=== PATIENT | male | born 1935 | race Caucasian/White ===

== ENCOUNTER 2017-03-24 08:31 | Emergency (ER) | payer OTHER, BC ==
[~2017-03-24] VITALS: Ht 175.3 cm; Wt 61.2 kg
[~2017-03-24 08:31] MED LIST: ADVAIR HFA120 INHALA IH; ATORVASTATIN CA10 MG PO; ATORVASTATIN CA20 MG PO; CENTRUM SILVER1 EAC3 PO; COMBIVENT RESPIM4 GM IH; FUROSEMIDE20 MG PO; IRON325 M1 PO; LISINOPRIL2.5 MG PO; LO-DOSE ASPIRIN81 M1 PO; LOPRESSOR25 MG PO; METOPROLOL TART25 MG PO; NICOTINE PATCH1 EAC1 TD; PANTOPRAZOLE SO40 MG PO; PREDNISONE10 MG PO; SPIRIVA RESPIMAT4 GM IH; SPIRIVA1 INHALATI IH
[2017-03-24] MEDS ORDERED: FLEXERIL5 MG PO (10:53)
[2017-03-24] MEDS ORDERED: LIDODERM 5% P1 PATCH TD (10:53)
[2017-03-24 11:00] VITALS: BP 131/66
== END 2017-03-24 11:01 | disposition home or self-care (01) ==
LOC: EME 08:31
DX: S22.41XA Multiple fractures of ribs, right side, initial encounter for closed fracture (principal); S41.111A Laceration without foreign body of right upper arm, initial encounter; W01.198A Fall on same level from slipping, tripping and stumbling with subsequent striking against other object, initial encounter; Z87.891 Personal history of nicotine dependence
CPT/HCPCS: 71250

== ENCOUNTER 2017-06-06 03:44 | Inpatient (IN) | payer OTHER, BC ==
[~2017-06-06] VITALS: Ht 175.3 cm; Wt 59.0 kg
[2017-06-06] VITALS (8 sets, daily range): BP systolic 100–124; BP diastolic 55–74
[~2017-06-06 03:44] MED LIST changes: +FLEXERIL5 MG PO; +LIDODERM 5% P1 PATCH TD
[2017-06-06 04:23] LABS: HEMATOCRIT 23.7 % (38.0-50.0); MCH 29.8 PG (29.0-34.0); MCHC 31.6 G/DL (30.0-36.0); MEAN PLAT.VOLUME 9.4 uM^3 (9.0-12.4); PLATELET COUNT 226 K/uL (156-360); RBC DIS.WIDTH-CV 17.3 % (11.8-14.6); RED BLOOD COUNT 2.52 M/uL (4.00-5.50); WHITE BLOOD COUNT 11.3 K/uL (4.1-10.2)
[2017-06-06 04:33] LABS: CHLORIDE 104 mEq/L (99-109); INTER. NORMALIZED RATIO 1.2; POTASSIUM 4.5 mEq/L (3.7-5.4); PTT 27.1 (25-32); SODIUM 134 mEq/L (136-147)
[2017-06-06 04:34] LABS: GLUCOSE 121 mg/dL (70-99)
[2017-06-06 04:36] LABS: ANION GAP 12 MEQ/L (2-14)
[2017-06-06 04:38] LABS: GFR ESTIMATE (CALCULATED) > 59 mL/min/
[2017-06-06 04:39] LABS: UREA NITROGEN (BUN) 31 mg/dL (9-23)
[2017-06-06 04:56] LABS: TROP-I INTERPRETATION POSITIVE; TROPONIN-I 1.05 ng/mL (0.0-0.30)
[2017-06-06] MEDS ORDERED: SPIRONOLACTONE25 MG PO (08:43)
[2017-06-06] MEDS ORDERED: CLOPIDOGREL75 MG PO (08:43)
[2017-06-06] MEDS ORDERED: TOPROL XL25 MG PO (08:43)
[2017-06-06] MEDS ORDERED: FUROSEMIDE20 MG PO (08:44)
[2017-06-06] MEDS ORDERED: ATORVASTATIN CA20 MG PO (08:44)
[2017-06-06] MEDS ORDERED: SYMAX DUOTAB0.375 MG PO (08:45)
[2017-06-06] MEDS ORDERED: SPIRIVA RESPIMAT4 GM IH (08:51)
[2017-06-06] MEDS ORDERED: HYOSCYAMINE0.375 M4 PO (08:52)
[2017-06-06] MEDS ORDERED: LEVBID0.375 MG PO (08:53)
[2017-06-06 10:04] LABS: TROP-I INTERPRETATION POSITIVE
[2017-06-06 16:45] LABS: TROP-I INTERPRETATION POSITIVE; TROPONIN-I 0.97 ng/mL (0.0-0.30)
[2017-06-07 03:00] VITALS: BP 111/54
[2017-06-07 05:49] LABS: EOSINOPHIL (%) 0 % (0-5); HEMATOCRIT 27.1 % (38.0-50.0); IMMATURE GRANULOCYTE (%) 1.3 % (0.0-0.7); IMMATURE GRANULOCYTE COUNT 0.1 K/uL; INSTRUMENT ABS NEUTROPHIL CT 7.6 K/uL; LYMPHOCYTE COUNT 0.3 K/uL (1.0-2.8); MCH 31.4 PG (29.0-34.0); MCHC 33.2 G/DL (30.0-36.0); MCV 94.4 FL (86-99); MEAN PLAT.VOLUME 9.5 uM^3 (9.0-12.4); MONOCYTE (%) 3.4 % (3-12); MONOCYTE COUNT 0.3 K/uL (0-0.8); NEUTROPHIL (%) 91.6 % (45-76); NEUTROPHIL COUNT 7.6 K/uL (1.8-6.4); PLATELET COUNT 206 K/uL (156-360); RBC DIS.WIDTH-CV 17.6 % (11.8-14.6); RBC DIS.WIDTH-SD 56.5 % (39-53); RED BLOOD COUNT 2.87 M/uL (4.00-5.50); WHITE BLOOD COUNT 8.3 K/uL (4.1-10.2)
[2017-06-07 06:12] LABS: ANION GAP 13 MEQ/L (2-14); CHLORIDE 105 MEQ/L (99-109); GFR ESTIMATE (CALCULATED) 56 mL/min/; GLUCOSE 151 mg/dL (70-99); MAGNESIUM 2.3 mg/dl (1.3-2.7); POTASSIUM 4.7 MEQ/L (3.7-5.4); SAMPLE HEMOLYSIS CHECK 0; SAMPLE ICTERIC CHECK 0; SAMPLE LIPEMIA CHECK 0; SODIUM 133 MEQ/L (136-147); UREA NITROGEN (BUN) 36 mg/dL (9-23)
[2017-06-07 08:27] VITALS: BP 123/59
[2017-06-07 11:12] VITALS: BP 112/57
[2017-06-07 11:23] LABS: TROP-I INTERPRETATION POSITIVE; TROPONIN-I 0.66 ng/mL (0.0-0.30)
[2017-06-07 17:52] VITALS: BP 112/58
[2017-06-07 20:58] VITALS: BP 110/63
[2017-06-07 23:56] VITALS: BP 88/50
[2017-06-08 04:38] VITALS: BP 102/58
[2017-06-08 05:48] LABS: EOSINOPHIL (%) 0 % (0-5); HEMATOCRIT 25.9 % (38.0-50.0); IMMATURE GRANULOCYTE (%) 1.5 % (0.0-0.7); IMMATURE GRANULOCYTE COUNT 0.2 K/uL; INSTRUMENT ABS NEUTROPHIL CT 12.6 K/uL; LYMPHOCYTE COUNT 0.3 K/uL (1.0-2.8); MCH 31.2 PG (29.0-34.0); MCHC 33.2 G/DL (30.0-36.0); MCV 93.8 FL (86-99); MEAN PLAT.VOLUME 9.8 uM^3 (9.0-12.4); MONOCYTE (%) 3.8 % (3-12); MONOCYTE COUNT 0.5 K/uL (0-0.8); NEUTROPHIL (%) 92.5 % (45-76); NEUTROPHIL COUNT 12.6 K/uL (1.8-6.4); PLATELET COUNT 214 K/uL (156-360); RBC DIS.WIDTH-CV 17.8 % (11.8-14.6); RBC DIS.WIDTH-SD 56.8 % (39-53); RED BLOOD COUNT 2.76 M/uL (4.00-5.50); WHITE BLOOD COUNT 13.7 K/uL (4.1-10.2)
[2017-06-08 06:26] LABS: ANION GAP 10 MEQ/L (2-14); CHLORIDE 105 MEQ/L (99-109); GFR ESTIMATE (CALCULATED) > 59 mL/min/; POTASSIUM 4.5 MEQ/L (3.7-5.4); SAMPLE HEMOLYSIS CHECK 0; SAMPLE ICTERIC CHECK 0; SAMPLE LIPEMIA CHECK 0; SODIUM 133 MEQ/L (136-147); UREA NITROGEN (BUN) 43 mg/dL (9-23)
[2017-06-08 06:27] LABS: GLUCOSE 110 mg/dL (70-99); VANCOMYCIN, TROUGH 7.3 MCG/ML (10-20)
[2017-06-08 08:33] VITALS: BP 92/54
[2017-06-08 13:07] VITALS: BP 89/50
[2017-06-08 16:54] VITALS: BP 100/59
[2017-06-08 20:14] VITALS: BP 122/57
[2017-06-08 23:54] VITALS: BP 99/58
[2017-06-09 04:17] VITALS: BP 123/56
[2017-06-09 05:39] LABS: EOSINOPHIL (%) 0 % (0-5); HEMATOCRIT 26.3 % (38.0-50.0); IMMATURE GRANULOCYTE (%) 1.2 % (0.0-0.7); IMMATURE GRANULOCYTE COUNT 0.2 K/uL; INSTRUMENT ABS NEUTROPHIL CT 11.3 K/uL; LYMPHOCYTE COUNT 0.3 K/uL (1.0-2.8); MCH 30.5 PG (29.0-34.0); MCHC 32.7 G/DL (30.0-36.0); MCV 93.3 FL (86-99); MEAN PLAT.VOLUME 9.9 uM^3 (9.0-12.4); MONOCYTE (%) 4.2 % (3-12); MONOCYTE COUNT 0.5 K/uL (0-0.8); NEUTROPHIL (%) 92.3 % (45-76); NEUTROPHIL COUNT 11.3 K/uL (1.8-6.4); PLATELET COUNT 243 K/uL (156-360); RBC DIS.WIDTH-SD 55.8 % (39-53); RED BLOOD COUNT 2.82 M/uL (4.00-5.50); WHITE BLOOD COUNT 12.3 K/uL (4.1-10.2)
[2017-06-09 06:34] LABS: ANION GAP 11 MEQ/L (2-14); CHLORIDE 102 MEQ/L (99-109); GFR ESTIMATE (CALCULATED) > 59 mL/min/; GLUCOSE 108 mg/dL (70-99); POTASSIUM 4.2 MEQ/L (3.7-5.4); SAMPLE HEMOLYSIS CHECK 0; SAMPLE ICTERIC CHECK 0; SAMPLE LIPEMIA CHECK 0; SODIUM 130 MEQ/L (136-147); UREA NITROGEN (BUN) 47 mg/dL (9-23)
[2017-06-09 08:49] VITALS: BP 104/62
[2017-06-09 09:55] LABS: ALKALINE PHOSPHATASE 66 IU/L (3-129); DIRECT BILIRUBIN 0.3 mg/dL (0.0-0.3); TOTAL BILIRUBIN 0.8 MG/DL (0.0-1.0)
[2017-06-09 12:17] VITALS: BP 104/56
[2017-06-09 16:16] VITALS: BP 107/62
[2017-06-09 19:23] VITALS: BP 104/59
[2017-06-09 23:03] VITALS: BP 94/48
[2017-06-10 04:02] VITALS: BP 98/56
[2017-06-10 05:04] LABS: EOSINOPHIL (%) 0 % (0-5); HEMATOCRIT 26.6 % (38.0-50.0); IMMATURE GRANULOCYTE (%) 1.3 % (0.0-0.7); IMMATURE GRANULOCYTE COUNT 0.2 K/uL; INSTRUMENT ABS NEUTROPHIL CT 11.5 K/uL; LYMPHOCYTE COUNT 0.3 K/uL (1.0-2.8); MCH 30.1 PG (29.0-34.0); MCHC 32.3 G/DL (30.0-36.0); MEAN PLAT.VOLUME 9.9 uM^3 (9.0-12.4); MONOCYTE (%) 5.5 % (3-12); MONOCYTE COUNT 0.7 K/uL (0-0.8); NEUTROPHIL (%) 91.1 % (45-76); NEUTROPHIL COUNT 11.5 K/uL (1.8-6.4); PLATELET COUNT 214 K/uL (156-360); RBC DIS.WIDTH-CV 16.7 % (11.8-14.6); RBC DIS.WIDTH-SD 56.3 % (39-53); RED BLOOD COUNT 2.86 M/uL (4.00-5.50); WHITE BLOOD COUNT 12.7 K/uL (4.1-10.2)
[2017-06-10 05:47] LABS: ALKALINE PHOSPHATASE 64 IU/L (3-129); ANION GAP 10 MEQ/L (2-14); CHLORIDE 105 MEQ/L (99-109); GFR ESTIMATE (CALCULATED) > 59 mL/min/; GLUCOSE 107 mg/dL (70-99); POTASSIUM 4.6 MEQ/L (3.7-5.4); SAMPLE HEMOLYSIS CHECK 0; SAMPLE ICTERIC CHECK 0; SAMPLE LIPEMIA CHECK 0; SODIUM 132 MEQ/L (136-147); TOTAL BILIRUBIN 0.8 MG/DL (0.0-1.0); UREA NITROGEN (BUN) 43 mg/dL (9-23)
[2017-06-10 08:29] VITALS: BP 97/61
[2017-06-10 12:36] VITALS: BP 107/58
[2017-06-10 13:25] LABS: BASE EXCESS -4.5 mEq/L (-3 to +3); BICARBONATE 17.9 mEq/L (22-26); CARBOXY HGB 1.9 % (0-5); METHEMOGLOBIN 1.6 % (0-1.5); PCO2 24 mm Hg (35-45); PO2 56 mm Hg (80-100); pH 7.48 (7.35-7.45)
[2017-06-10 13:26] LABS: COMMENTS - BLOOD GASES AC+; DEVICE HFNC; O2 FLOW 9 L/MIN; SITE RR; TOTAL RESP RATE 24 resp/min
[2017-06-10 16:38] VITALS: BP 106/60
[2017-06-10 20:00] VITALS: BP 100/56
[2017-06-10 23:57] VITALS: BP 99/61
[2017-06-11 03:38] VITALS: BP 108/61
[2017-06-11 07:18] VITALS: BP 85/62
[2017-06-11 08:07] LABS: HEMATOCRIT 27.7 % (38.0-50.0); MCH 30.2 PG (29.0-34.0); MCHC 32.5 G/DL (30.0-36.0); MEAN PLAT.VOLUME 9.6 uM^3 (9.0-12.4); PLATELET COUNT 208 K/uL (156-360); RBC DIS.WIDTH-CV 16.6 % (11.8-14.6); RBC DIS.WIDTH-SD 56.3 % (39-53); RED BLOOD COUNT 2.98 M/uL (4.00-5.50); WHITE BLOOD COUNT 11.9 K/uL (4.1-10.2)
[2017-06-11 08:22] LABS: INTERNAL CONTROL VALID? YES
[2017-06-11 08:22] LABS: ANION GAP 8 MEQ/L (2-14); CHLORIDE 106 MEQ/L (99-109); POTASSIUM 4.6 MEQ/L (3.7-5.4); SAMPLE HEMOLYSIS CHECK 0; SAMPLE ICTERIC CHECK 0; SAMPLE LIPEMIA CHECK 0; SODIUM 135 MEQ/L (136-147)
[2017-06-11 08:28] LABS: GFR ESTIMATE (CALCULATED) > 59 mL/min/; GLUCOSE 102 mg/dL (70-99); UREA NITROGEN (BUN) 40 mg/dL (9-23)
[2017-06-11 11:39] VITALS: BP 109/57
[2017-06-11 15:25] VITALS: BP 109/66
[2017-06-11 19:14] VITALS: BP 101/59
[2017-06-11 22:16] VITALS: BP 114/65
[2017-06-12] VITALS (7 sets, daily range): BP systolic 90–119; BP diastolic 51–66
[2017-06-13 03:03] VITALS: BP 103/59
[2017-06-13 06:04] LABS: HEMATOCRIT 26.4 % (38.0-50.0); MCH 31.5 PG (29.0-34.0); MCHC 34.1 G/DL (30.0-36.0); MCV 92.3 FL (86-99); MEAN PLAT.VOLUME 10.4 uM^3 (9.0-12.4); PLATELET COUNT 164 K/uL (156-360); RBC DIS.WIDTH-CV 16.2 % (11.8-14.6); RBC DIS.WIDTH-SD 54.2 % (39-53); RED BLOOD COUNT 2.86 M/uL (4.00-5.50); WHITE BLOOD COUNT 12.1 K/uL (4.1-10.2)
[2017-06-13 06:29] LABS: ANION GAP 7 MEQ/L (2-14); CHLORIDE 107 MEQ/L (99-109); GFR ESTIMATE (CALCULATED) > 59 mL/min/; GLUCOSE 105 mg/dL (70-99); POTASSIUM 4.2 MEQ/L (3.7-5.4); SAMPLE HEMOLYSIS CHECK 0; SAMPLE ICTERIC CHECK 0; SAMPLE LIPEMIA CHECK 0; SODIUM 135 MEQ/L (136-147); UREA NITROGEN (BUN) 34 mg/dL (9-23)
[2017-06-13 08:00] VITALS: BP 101/59
[2017-06-13 13:40] VITALS: BP 103/55
[2017-06-13 17:12] VITALS: BP 106/58
[2017-06-13 18:56] VITALS: BP 98/53
[2017-06-13 22:47] VITALS: BP 99/52
[2017-06-14 03:01] VITALS: BP 114/58
[2017-06-14 05:45] LABS: HEMATOCRIT 29.5 % (38.0-50.0); MCH 30.5 PG (29.0-34.0); MCHC 33.2 G/DL (30.0-36.0); MCV 91.9 FL (86-99); MEAN PLAT.VOLUME 10.6 uM^3 (9.0-12.4); PLATELET COUNT 173 K/uL (156-360); RBC DIS.WIDTH-CV 15.9 % (11.8-14.6); RED BLOOD COUNT 3.21 M/uL (4.00-5.50); WHITE BLOOD COUNT 11.3 K/uL (4.1-10.2)
[2017-06-14 06:14] LABS: ANION GAP 11 MEQ/L (2-14); CHLORIDE 106 MEQ/L (99-109); GFR ESTIMATE (CALCULATED) > 59 mL/min/; GLUCOSE 103 mg/dL (70-99); POTASSIUM 4.6 MEQ/L (3.7-5.4); SAMPLE HEMOLYSIS CHECK 0; SAMPLE ICTERIC CHECK 0; SAMPLE LIPEMIA CHECK 0; SODIUM 135 MEQ/L (136-147); UREA NITROGEN (BUN) 32 mg/dL (9-23)
[2017-06-14 12:18] VITALS: BP 111/58
[2017-06-14 19:15] VITALS: BP 128/62
[2017-06-14 23:14] VITALS: BP 100/56
[2017-06-15] VITALS (7 sets, daily range): BP systolic 98–134; BP diastolic 55–68
[2017-06-15 05:49] LABS: MCH 30.8 PG (29.0-34.0); MCHC 34.1 G/DL (30.0-36.0); MCV 90.3 FL (86-99); MEAN PLAT.VOLUME 10.5 uM^3 (9.0-12.4); PLATELET COUNT 160 K/uL (156-360); RBC DIS.WIDTH-CV 15.7 % (11.8-14.6); RED BLOOD COUNT 2.99 M/uL (4.00-5.50); WHITE BLOOD COUNT 10.7 K/uL (4.1-10.2)
[2017-06-15 06:12] LABS: ANION GAP 7 MEQ/L (2-14); CHLORIDE 106 MEQ/L (99-109); GFR ESTIMATE (CALCULATED) > 59 mL/min/; GLUCOSE 88 mg/dL (70-99); POTASSIUM 4.1 MEQ/L (3.7-5.4); SAMPLE HEMOLYSIS CHECK 0; SAMPLE ICTERIC CHECK 0; SAMPLE LIPEMIA CHECK 0; SODIUM 135 MEQ/L (136-147); UREA NITROGEN (BUN) 30 mg/dL (9-23)
[2017-06-16 02:42] VITALS: BP 110/60
[2017-06-16 08:24] VITALS: BP 104/60
[2017-06-16] MEDS ORDERED: FUROSEMIDE20 MG PO (11:11)
[2017-06-16] MEDS ORDERED: PREDNISONE10 MG PO (11:16)
[2017-06-16 11:23] VITALS: BP 96/55
[2017-06-16] MEDS ORDERED: CARVEDILOL3.125 MG PO (11:24)
[2017-06-16] MEDS ORDERED: LISINOPRIL2.5 MG PO (11:24)
[2017-06-16] MEDS ORDERED: TAMSULOSIN HCL0.4 MG PO (11:25)
== END 2017-06-16 13:57 | disposition home health service (06) | DRG 280 ==
LOC: EME → EDBD 03:44 → 4EAST 05:56 → EDOF 05:56 → 4EAST 07:21 → ENPENDDIS 06-16 → 4EAST 06-16 13:57
PROVIDERS: Emergency Medicine; Hospitalist; Internal Medicine Pulmonary Disease; Nurse Practitioner Adult Health; Student in an Organized Health Care Education/Training Program
PROC: 30233N1 Transfusion of Nonautologous Red Blood Cells into Peripheral Vein, Percutaneous Approach (ICD-10-PCS; principal; 2017-06-06)
DX: I21.4 Non-ST elevation (NSTEMI) myocardial infarction (principal); I50.23 Acute on chronic systolic (congestive) heart failure; J18.9 Pneumonia, unspecified organism; J96.01 Acute respiratory failure with hypoxia; J44.0 Chronic obstructive pulmonary disease with (acute) lower respiratory infection; J44.1 Chronic obstructive pulmonary disease with (acute) exacerbation; J98.11 Atelectasis; R04.2 Hemoptysis; J90 Pleural effusion, not elsewhere classified; E87.1 Hypo-osmolality and hyponatremia; Z68.1 Body mass index [BMI] 19.9 or less, adult; I11.0 Hypertensive heart disease with heart failure; M48.54XG Collapsed vertebra, not elsewhere classified, thoracic region, subsequent encounter for fracture with delayed healing; R19.5 Other fecal abnormalities; I27.2 Other secondary pulmonary hypertension; D64.9 Anemia, unspecified; G89.29 Other chronic pain; H91.93 Unspecified hearing loss, bilateral; J84.10 Pulmonary fibrosis, unspecified; W01.198D Fall on same level from slipping, tripping and stumbling with subsequent striking against other object, subsequent encounter; I25.10 Atherosclerotic heart disease of native coronary artery without angina pectoris; E78.5 Hyperlipidemia, unspecified; Y95 Nosocomial condition; I25.5 Ischemic cardiomyopathy; S22.41XG Multiple fractures of ribs, right side, subsequent encounter for fracture with delayed healing; Z95.2 Presence of prosthetic heart valve; Z79.82 Long term (current) use of aspirin; Z79.02 Long term (current) use of antithrombotics/antiplatelets; I25.2 Old myocardial infarction; Z87.891 Personal history of nicotine dependence
CPT/HCPCS: 36600; 71010; 71020; 71250; 80048; 80053; 80076; 80202; 82565; 82803; 83735; 83880; 84484; 85025; 85027; 85610; 85730; 86900; 86901; 86920; 87040; 87070; 87106; 87205; 87449; 93005; 94010; 94640; 94640 76; 94667; 94668; 94760; 94799; 97530 GO; 99202; 99281; 99285; J0456; J1644; J1940; J2543; J2920; J2930; J3370; J7050; J7512; P9016

== ENCOUNTER 2017-07-09 04:51 | Inpatient (IN) | payer OTHER, BC ==
[~2017-07-09] VITALS: Ht 175.3 cm; Wt 66.2 kg
[~2017-07-09 04:51] MED LIST changes: +CARVEDILOL3.125 MG PO; +CLOPIDOGREL75 MG PO; +HYOSCYAMINE0.375 M4 PO; +LEVBID0.375 MG PO; +SPIRONOLACTONE25 MG PO; +SYMAX DUOTAB0.375 MG PO; +TAMSULOSIN HCL0.4 MG PO; +TOPROL XL25 MG PO
[2017-07-09 05:31] LABS: CREATININE 0.9 mg/dL (0.6-1.3); POTASSIUM 4.2 mEq/L (3.7-5.4)
[2017-07-09 05:47] LABS: CHLORIDE 106 mEq/L (99-109); HEMATOCRIT 28.8 % (38.0-50.0); MCH 29.3 PG (29.0-34.0); MCHC 33.3 G/DL (30.0-36.0); MCV 87.8 FL (86-99); MEAN PLAT.VOLUME 9.6 uM^3 (9.0-12.4); PLATELET COUNT 164 K/uL (156-360); RBC DIS.WIDTH-CV 15.7 % (11.8-14.6); RED BLOOD COUNT 3.28 M/uL (4.00-5.50); SODIUM 135 mEq/L (136-147); WHITE BLOOD COUNT 3.7 K/uL (4.1-10.2)
[2017-07-09 05:49] LABS: GLUCOSE 88 mg/dL (70-99)
[2017-07-09 05:50] LABS: ANION GAP 10 MEQ/L (2-14)
[2017-07-09 05:51] LABS: TOTAL BILIRUBIN 0.6 mg/dL (0.0-1.0)
[2017-07-09 05:53] LABS: ALKALINE PHOSPHATASE 93 IU/L (3-129); GFR ESTIMATE (CALCULATED) > 59 mL/min/
[2017-07-09 05:54] LABS: DIRECT BILIRUBIN 0.3 mg/dL (0.0-0.3); UREA NITROGEN (BUN) 22 mg/dL (9-23)
[2017-07-09 05:56] LABS: CREATINE KINASE 37 IU/L (1-294); TOTAL CK 37 IU/L (1-294)
[2017-07-09 06:02] LABS: CK-MB 1.8 ng/mL (0.0-4.9)
[2017-07-09 06:23] LABS: SAMPLE HEMOLYSIS CHECK 0; SAMPLE ICTERIC CHECK 0; SAMPLE LIPEMIA CHECK 0
[2017-07-09 06:28] LABS: LIPASE 14 U/L (1.0-51.0)
[2017-07-09 06:59] LABS: C DIFF TOXIN NEGATIVE (NEGATIVE)
[2017-07-09 07:00] LABS: PROBE CHECK PASS; SPECIMEN PROCESSING CONTROL PASS
[2017-07-09] MEDS ORDERED: LASIX20 MG PO (07:11)
[2017-07-09] MEDS ORDERED: MYCOSTATIN15 GM PO (07:15)
[2017-07-09] MEDS ORDERED: PREDNISONE10 MG PO (07:15)
[2017-07-09] MEDS ORDERED: LOPRESSOR25 MG PO (07:16)
[2017-07-09] MEDS ORDERED: SPIRONOLACTONE25 MG PO (07:18)
[2017-07-09] MEDS ORDERED: MYCOSTATIN 100,60 ML PO (07:18)
[2017-07-09] MEDS ORDERED: LIDOCAINE HCL4 ML PO (07:20)
[2017-07-09 17:16] VITALS: BP 95/51
[2017-07-09 17:53] VITALS: BP 95/51
[2017-07-09 19:55] VITALS: BP 103/56
[2017-07-09 23:21] VITALS: BP 95/54
[2017-07-10] VITALS (9 sets, daily range): BP systolic 93–112; BP diastolic 51–59
[2017-07-10 06:16] LABS: HEMATOCRIT 22.4 % (38.0-50.0); MCH 30.1 PG (29.0-34.0); MCV 91.1 FL (86-99); RBC DIS.WIDTH-CV 15.9 % (11.8-14.6); RBC DIS.WIDTH-SD 53.4 % (39-53); RED BLOOD COUNT 2.46 M/uL (4.00-5.50); WHITE BLOOD COUNT 5.9 K/uL (4.1-10.2)
[2017-07-10 06:25] LABS: ANION GAP 4 MEQ/L (2-14); CHLORIDE 111 MEQ/L (99-109); GFR ESTIMATE (CALCULATED) > 59 mL/min/; GLUCOSE 81 mg/dL (70-99); POTASSIUM 3.9 MEQ/L (3.7-5.4); SAMPLE HEMOLYSIS CHECK 0; SAMPLE ICTERIC CHECK 0; SAMPLE LIPEMIA CHECK 0; SODIUM 135 MEQ/L (136-147); UREA NITROGEN (BUN) 21 mg/dL (9-23)
[2017-07-10 07:54] LABS: ABS NEUTROPHIL COUNT 5.3; ACANTHOCYTES 1+; ANISOCYTOSIS 1+; BAND NEUTROPHILS 26.1 % (0-8.0); BURR CELLS 2+; EOSINOPHIL ABS CT 0; INSTRUMENT ABS NEUTROPHIL CT 4.3 K/uL; LYMPHOCYTES 6.1 % (15.0-45.0); MEAN PLAT.VOLUME 10.1 uM^3 (9.0-12.4); OVALOCYTES 1+; PLAT.SUFFICIENCY DECREASED; POIKILOCYTOSIS 3+; SEG.NEUTROPHILS 64.3 % (46.0-76.0); SPHEROCYTES 1+
[2017-07-10 07:56] LABS: PLATELET COUNT 114 K/uL (156-360)
[2017-07-10 10:41] LABS: HEMATOCRIT 23.4 % (38.0-50.0); IMM.RETIC FRACTION 7.3 % (3-19); MCV 91.1 FL (86-99); RETICULOCYTE COUNT 1.3 % (0.5-1.8)
[2017-07-10 10:43] LABS: FERRITIN 88 NG/ML (22-322)
[2017-07-10 10:50] LABS: IRON 10 MCG/DL (35-150)
[2017-07-10 23:51] LABS: BASE EXCESS -11.3 mEq/L (-3 to +3); BICARBONATE 13.4 mEq/L (22-26); CARBOXY HGB 2.2 % (0-5); COMMENTS - BLOOD GASES C+A+; METHEMOGLOBIN 1.2 % (0-1.5); O2 FLOW 15 L/MIN; PCO2 26 mm Hg (35-45); PO2 80 mm Hg (80-100); SITE RR; pH 7.32 (7.35-7.45)
[2017-07-10 23:52] LABS: DEVICE NRBM
[2017-07-11] VITALS (20 sets, daily range): BP systolic 57–124; BP diastolic 36–80
[2017-07-11 00:17] LABS: MCH 29.7 PG (29.0-34.0); MCHC 33.7 G/DL (30.0-36.0); MCV 88.2 FL (86-99); NRBC (%) 0.5 /100 WBC (0-0); PLATELET COUNT 131 K/uL (156-360); RBC DIS.WIDTH-CV 15.7 % (11.8-14.6); RBC DIS.WIDTH-SD 51.2 % (39-53); WHITE BLOOD COUNT 10.2 K/uL (4.1-10.2)
[2017-07-11 00:23] LABS: CHLORIDE 109 mEq/L (99-109); POTASSIUM 3.8 mEq/L (3.7-5.4); SODIUM 131 mEq/L (136-147)
[2017-07-11 00:27] LABS: ANION GAP 11 MEQ/L (2-14)
[2017-07-11 00:29] LABS: ALKALINE PHOSPHATASE 99 IU/L (3-129); GFR ESTIMATE (CALCULATED) > 59 mL/min/
[2017-07-11 00:30] LABS: UREA NITROGEN (BUN) 21 mg/dL (9-23)
[2017-07-11 00:37] LABS: GLUCOSE 161 mg/dL (70-99)
[2017-07-11 00:38] LABS: TOTAL BILIRUBIN 0.8 mg/dL (0.0-1.0)
[2017-07-11 04:56] LABS: CHLORIDE 109 mEq/L (99-109); POTASSIUM 3.9 mEq/L (3.7-5.4); SODIUM 134 mEq/L (136-147)
[2017-07-11 04:58] LABS: GLUCOSE 133 mg/dL (70-99)
[2017-07-11 04:59] LABS: ANION GAP 11 MEQ/L (2-14)
[2017-07-11 05:00] LABS: TOTAL BILIRUBIN 0.7 mg/dL (0.0-1.0)
[2017-07-11 05:01] LABS: ALKALINE PHOSPHATASE 105 IU/L (3-129)
[2017-07-11 05:02] LABS: GFR ESTIMATE (CALCULATED) > 59 mL/min/
[2017-07-11 05:03] LABS: UREA NITROGEN (BUN) 22 mg/dL (9-23)
[2017-07-11 05:48] LABS: ABS NEUTROPHIL COUNT 9.2; ANISOCYTOSIS 1+; BURR CELLS 2+; EOSINOPHIL ABS CT 0; HEMATOCRIT 30.5 % (38.0-50.0); INSTRUMENT ABS NEUTROPHIL CT 8.4 K/uL; MACROCYTES 1+; MCH 29.4 PG (29.0-34.0); MCHC 33.1 G/DL (30.0-36.0); MCV 88.7 FL (86-99); OVALOCYTES 1+; PLAT.SUFFICIENCY ADEQUATE; RBC DIS.WIDTH-CV 15.9 % (11.8-14.6); RBC DIS.WIDTH-SD 51.8 % (39-53); RED BLOOD COUNT 3.44 M/uL (4.00-5.50); WHITE BLOOD COUNT 9.9 K/uL (4.1-10.2)
[2017-07-11 05:49] LABS: PLATELET CLUMPS PRESENT - PLATELET C
[2017-07-11 06:09] LABS: BASE EXCESS -4.8 mEq/L (-3 to +3); BICARBONATE 18.6 mEq/L (22-26); CARBOXY HGB 1.6 % (0-5); COMMENTS - BLOOD GASES C+A+; DEVICE NIV; FI02 100 %; MECHANICAL RATE 31 resp/min; METHEMOGLOBIN 1.3 % (0-1.5); MODE SPONT; PCO2 28 mm Hg (35-45); PEEP 8 CM/H20; PO2 85 mm Hg (80-100); PRES. SUPPORT 12 CM/H2O; SITE LR; TOTAL RESP RATE 31 resp/min; pH 7.43 (7.35-7.45)
[2017-07-11 06:48] LABS: METH RESISTANT S AUREUS PCR NEGATIVE (NEGATIVE)
[2017-07-11 06:49] LABS: PROBE CHECK PASS; SPECIMEN PROCESSING CONTROL PASS
[2017-07-11 07:16] LABS: HEMATOCRIT 27.8 % (38.0-50.0); MCH 30.6 PG (29.0-34.0); MCHC 34.2 G/DL (30.0-36.0); MCV 89.7 FL (86-99); MEAN PLAT.VOLUME 10.1 uM^3 (9.0-12.4); PLATELET COUNT 141 K/uL (156-360); RBC DIS.WIDTH-SD 52.9 % (39-53); WHITE BLOOD COUNT 7.8 K/uL (4.1-10.2)
[2017-07-11 07:21] LABS: ADD MIUA? NO; BILIRUBIN NEGATIVE; BLOOD NEGATIVE; COLOR STRAW ((YELLOW)); GLUCOSE (STRIP) NEGATIVE; KETONES NEGATIVE; LEUKOCYTES NEGATIVE; NITRITE NEGATIVE; PROTEIN (STRIP) NEGATIVE; SPECIFIC GRAVITY 1.008 (1.000-1.030); UCUL ADDED? NO; UROBILINOGEN 0.2 MG/DL (0.2-1.0)
[2017-07-11 07:36] LABS: ANION GAP 10 MEQ/L (2-14); CHLORIDE 109 MEQ/L (99-109); POTASSIUM 3.7 MEQ/L (3.7-5.4); SAMPLE HEMOLYSIS CHECK 0; SAMPLE ICTERIC CHECK 0; SAMPLE LIPEMIA CHECK 0; SODIUM 138 MEQ/L (136-147)
[2017-07-11 07:44] LABS: GFR ESTIMATE (CALCULATED) > 59 mL/min/; GLUCOSE 124 mg/dL (70-99); TRIGLYCERIDES 88 MG/DL (Normal: <150); UREA NITROGEN (BUN) 22 mg/dL (9-23)
[2017-07-11 10:55] LABS: BASE EXCESS -6.2 mEq/L (-3 to +3); BICARBONATE 19.6 mEq/L (22-26); CARBOXY HGB 1.8 % (0-5); METHEMOGLOBIN 1.6 % (0-1.5)
[2017-07-11 10:58] LABS: BASE EXCESS -6.8 mEq/L (-3 to +3); BICARBONATE 18.5 mEq/L (22-26); CARBOXY HGB 1.4 % (0-5); METHEMOGLOBIN 1.2 % (0-1.5); PO2 91 mm Hg (80-100)
[2017-07-11 10:59] LABS: COMMENTS - BLOOD GASES C+ANA; DEVICE 980 PB; PCO2 35 mm Hg (35-45); SITE ALINE; pH 7.33 (7.35-7.45)
[2017-07-11 11:00] LABS: PCO2 39 mm Hg (35-45); PO2 36 mm Hg (80-100); SITE CVP; pH 7.31 (7.35-7.45)
[2017-07-11 11:00] LABS: FI02 80 %; MECHANICAL RATE 12 resp/min; MODE AC; PEEP 10 CM/H20; TIDAL VOLUME 480 ML; TOTAL RESP RATE 28 resp/min
[2017-07-11 13:26] LABS: INTERNAL CONTROL VALID? YES
[2017-07-12 05:24] LABS: BASE EXCESS -3.2 mEq/L (-3 to +3); BICARBONATE 20.8 mEq/L (22-26); CARBOXY HGB 1.5 % (0-5); METHEMOGLOBIN 1.2 % (0-1.5)
[2017-07-12 05:25] LABS: COMMENTS - BLOOD GASES C+; DEVICE VENT; FI02 50 %; PCO2 32 mm Hg (35-45); PO2 128 mm Hg (80-100); SITE LR ALINE; pH 7.42 (7.35-7.45)
[2017-07-12 05:26] LABS: MECHANICAL RATE 12 resp/min; MODE AC; TOTAL RESP RATE 25 resp/min
[2017-07-12 05:27] LABS: PEEP 7 CM/H20; TIDAL VOLUME 480 ML
[2017-07-12 06:39] LABS: HEMATOCRIT 25.7 % (38.0-50.0); MCHC 32.7 G/DL (30.0-36.0); MCV 88.6 FL (86-99); MEAN PLAT.VOLUME 9.8 uM^3 (9.0-12.4); PLATELET COUNT 138 K/uL (156-360); RBC DIS.WIDTH-CV 16.2 % (11.8-14.6); RBC DIS.WIDTH-SD 53.2 % (39-53); WHITE BLOOD COUNT 6.6 K/uL (4.1-10.2)
[2017-07-12 07:08] LABS: ANION GAP 7 MEQ/L (2-14); CHLORIDE 110 MEQ/L (99-109); CREATINE KINASE 57 IU/L (1-294); GFR ESTIMATE (CALCULATED) > 59 mL/min/; GLUCOSE 143 mg/dL (70-99); POTASSIUM 3.4 MEQ/L (3.7-5.4); SAMPLE HEMOLYSIS CHECK 0; SAMPLE ICTERIC CHECK 0; SAMPLE LIPEMIA CHECK 0; SODIUM 139 MEQ/L (136-147); UREA NITROGEN (BUN) 17 mg/dL (9-23)
[2017-07-12 07:25] LABS: EOSINOPHIL (%) 0.5 % (0-5); IMMATURE GRANULOCYTE (%) 0.9 % (0.0-0.7); IMMATURE GRANULOCYTE COUNT 0.1 K/uL; INSTRUMENT ABS NEUTROPHIL CT 5.1 K/uL; LYMPHOCYTE COUNT 0.9 K/uL (1.0-2.8); MONOCYTE COUNT 0.5 K/uL (0-0.8); NEUTROPHIL (%) 77.6 % (45-76); NEUTROPHIL COUNT 5.1 K/uL (1.8-6.4)
[2017-07-12 13:01] LABS: MAGNESIUM 1.6 mg/dl (1.3-2.7)
[2017-07-12 16:00] VITALS: BP 110/69
[2017-07-12 17:00] VITALS: BP 110/69
[2017-07-12 18:00] VITALS: BP 104/59
[2017-07-12 21:00] VITALS: BP 95/59
[2017-07-13] VITALS (14 sets, daily range): BP systolic 96–112; BP diastolic 55–85
[2017-07-13 05:36] LABS: CHLORIDE 110 mEq/L (99-109); SODIUM 138 mEq/L (136-147)
[2017-07-13 05:37] LABS: EOSINOPHIL (%) 0.2 % (0-5); HEMATOCRIT 27.6 % (38.0-50.0); IMMATURE GRANULOCYTE (%) 0.6 % (0.0-0.7); INSTRUMENT ABS NEUTROPHIL CT 5.7 K/uL; LYMPHOCYTE COUNT 0.3 K/uL (1.0-2.8); MCHC 31.9 G/DL (30.0-36.0); MCV 91.1 FL (86-99); MEAN PLAT.VOLUME 9.6 uM^3 (9.0-12.4); MONOCYTE (%) 2.1 % (3-12); MONOCYTE COUNT 0.1 K/uL (0-0.8); NEUTROPHIL (%) 91.8 % (45-76); NEUTROPHIL COUNT 5.7 K/uL (1.8-6.4); PLATELET COUNT 130 K/uL (156-360); RBC DIS.WIDTH-CV 16.3 % (11.8-14.6); RBC DIS.WIDTH-SD 54.9 % (39-53); RED BLOOD COUNT 3.03 M/uL (4.00-5.50); WHITE BLOOD COUNT 6.2 K/uL (4.1-10.2)
[2017-07-13 05:38] LABS: GLUCOSE 204 mg/dL (70-99)
[2017-07-13 05:40] LABS: ANION GAP 7 MEQ/L (2-14)
[2017-07-13 05:42] LABS: GFR ESTIMATE (CALCULATED) > 59 mL/min/
[2017-07-13 05:43] LABS: UREA NITROGEN (BUN) 13 mg/dL (9-23)
[2017-07-13 05:48] LABS: POTASSIUM 4.6 mEq/L (3.7-5.4)
[2017-07-13 17:30] LABS: POINT-OF-CARE METER ID UU13113748
[2017-07-14] VITALS (17 sets, daily range): BP systolic 99–114; BP diastolic 54–70
[2017-07-14 00:14] LABS: POINT-OF-CARE METER ID UU13113731
[2017-07-14 08:33] LABS: POINT-OF-CARE METER ID UU14174217
[2017-07-14 09:05] LABS: EOSINOPHIL (%) 0 % (0-5); HEMATOCRIT 25.3 % (38.0-50.0); IMMATURE GRANULOCYTE (%) 1.4 % (0.0-0.7); IMMATURE GRANULOCYTE COUNT 0.1 K/uL; INSTRUMENT ABS NEUTROPHIL CT 6.2 K/uL; LYMPHOCYTE COUNT 0.5 K/uL (1.0-2.8); MCH 30.1 PG (29.0-34.0); MCHC 32.4 G/DL (30.0-36.0); MEAN PLAT.VOLUME 10.1 uM^3 (9.0-12.4); MONOCYTE (%) 7.7 % (3-12); MONOCYTE COUNT 0.6 K/uL (0-0.8); NEUTROPHIL (%) 84.1 % (45-76); NEUTROPHIL COUNT 6.2 K/uL (1.8-6.4); PLATELET COUNT 142 K/uL (156-360); RBC DIS.WIDTH-CV 16.4 % (11.8-14.6); RBC DIS.WIDTH-SD 55.5 % (39-53); RED BLOOD COUNT 2.72 M/uL (4.00-5.50); WHITE BLOOD COUNT 7.3 K/uL (4.1-10.2)
[2017-07-14 09:49] LABS: ANION GAP 5 MEQ/L (2-14); CHLORIDE 109 MEQ/L (99-109); GFR ESTIMATE (CALCULATED) > 59 mL/min/; GLUCOSE 198 mg/dL (70-99); SAMPLE HEMOLYSIS CHECK 0; SAMPLE ICTERIC CHECK 0; SAMPLE LIPEMIA CHECK 0; SODIUM 141 MEQ/L (136-147); UREA NITROGEN (BUN) 18 mg/dL (9-23)
[2017-07-14 10:37] LABS: POINT-OF-CARE METER ID UU14174217
[2017-07-14 11:54] LABS: POINT-OF-CARE METER ID UU13113731
[2017-07-14 17:48] LABS: POINT-OF-CARE METER ID UU14162636
[2017-07-15] VITALS (10 sets, daily range): BP systolic 97–122; BP diastolic 57–73
[2017-07-15 00:53] LABS: POINT-OF-CARE METER ID UU14162636
[2017-07-15 06:05] LABS: POINT-OF-CARE METER ID UU14162636
[2017-07-15 06:25] LABS: EOSINOPHIL (%) 0 % (0-5); HEMATOCRIT 26.2 % (38.0-50.0); IMMATURE GRANULOCYTE (%) 1.9 % (0.0-0.7); IMMATURE GRANULOCYTE COUNT 0.2 K/uL; INSTRUMENT ABS NEUTROPHIL CT 7.4 K/uL; LYMPHOCYTE COUNT 0.4 K/uL (1.0-2.8); MCH 28.8 PG (29.0-34.0); MCHC 30.9 G/DL (30.0-36.0); MCV 93.2 FL (86-99); MEAN PLAT.VOLUME 9.8 uM^3 (9.0-12.4); MONOCYTE COUNT 0.5 K/uL (0-0.8); NEUTROPHIL (%) 87.5 % (45-76); NEUTROPHIL COUNT 7.4 K/uL (1.8-6.4); PLATELET COUNT 166 K/uL (156-360); RBC DIS.WIDTH-CV 16.5 % (11.8-14.6); RBC DIS.WIDTH-SD 56.4 % (39-53); RED BLOOD COUNT 2.81 M/uL (4.00-5.50); WHITE BLOOD COUNT 8.5 K/uL (4.1-10.2)
[2017-07-15 06:44] LABS: ANION GAP 6 MEQ/L (2-14); CHLORIDE 107 MEQ/L (99-109); GFR ESTIMATE (CALCULATED) > 59 mL/min/; GLUCOSE 176 mg/dL (70-99); MAGNESIUM 2.1 mg/dl (1.3-2.7); POTASSIUM 5.4 MEQ/L (3.7-5.4); SAMPLE HEMOLYSIS CHECK 0; SAMPLE ICTERIC CHECK 0; SAMPLE LIPEMIA CHECK 0; SODIUM 140 MEQ/L (136-147); UREA NITROGEN (BUN) 23 mg/dL (9-23)
[2017-07-15 11:23] LABS: POINT-OF-CARE METER ID UU14162636
[2017-07-15 17:49] LABS: POINT-OF-CARE METER ID UU14162636
[2017-07-16 00:22] LABS: POINT-OF-CARE METER ID UU14162636
[2017-07-16 05:20] LABS: POINT-OF-CARE METER ID UU13113748
[2017-07-16 08:00] VITALS: BP 107/61
[2017-07-16 08:19] LABS: BASE EXCESS 7.8 mEq/L (-3 to +3); BICARBONATE 30.8 mEq/L (22-26); CARBOXY HGB 2.1 % (0-5); METHEMOGLOBIN 1.2 % (0-1.5); PCO2 36 mm Hg (35-45); PO2 69 mm Hg (80-100); pH 7.54 (7.35-7.45)
[2017-07-16 08:20] LABS: COMMENTS - BLOOD GASES C+; DEVICE 980; FI02 30 %; MODE SPONT (TC); PEEP 5 CM/H20; SITE ALINE; TOTAL RESP RATE 26 resp/min
[2017-07-16 09:00] LABS: ANION GAP 4 MEQ/L (2-14); CHLORIDE 104 MEQ/L (99-109); GFR ESTIMATE (CALCULATED) > 59 mL/min/; POTASSIUM 5.2 MEQ/L (3.7-5.4); SAMPLE HEMOLYSIS CHECK 0; SAMPLE ICTERIC CHECK 0; SAMPLE LIPEMIA CHECK 0; SODIUM 138 MEQ/L (136-147); UREA NITROGEN (BUN) 27 mg/dL (9-23)
[2017-07-16 09:02] LABS: GLUCOSE 119 mg/dL (70-99)
[2017-07-16 10:00] VITALS: BP 107/61
[2017-07-16 11:46] LABS: POINT-OF-CARE METER ID UU13113748; POINT-OF-CARE USER ID 612031313
[2017-07-16 12:00] VITALS: BP 120/79
[2017-07-16 18:50] VITALS: BP 0/0
== END 2017-07-16 21:39 | DRG 871 ==
LOC: EME → EDBD 04:51 → EME 04:51 → EDOF 08:27 → 4WEST 08:27 → CANRESERV 08:32 → EDOF 08:32 → ENRESERV 08:32 → EDOF 09:07 → ENRESERV 09:08 → 4EAST 12:16 → ENRESERV 07-11 05:17 → 4WEST 07-11 05:21
PROVIDERS: Emergency Medicine; Hospitalist; Internal Medicine; Internal Medicine Critical Care Medicine; Internal Medicine Pulmonary Disease
PROC: 05HN33Z Insertion of Infusion Device into Left Internal Jugular Vein, Percutaneous Approach (ICD-10-PCS; principal; 2017-07-11)
PROC: 4A133BC Monitoring of Arterial Pressure, Coronary, Percutaneous Approach (ICD-10-PCS; principal; 2017-07-11)
PROC: 0BH17EZ Insertion of Endotracheal Airway into Trachea, Via Natural or Artificial Opening (ICD-10-PCS; 2017-07-11)
PROC: 30233N1 Transfusion of Nonautologous Red Blood Cells into Peripheral Vein, Percutaneous Approach (ICD-10-PCS; 2017-07-11)
PROC: 5A1945Z Respiratory Ventilation, 24-96 Consecutive Hours (ICD-10-PCS; 2017-07-11)
DX: A41.9 Sepsis, unspecified organism (principal); J96.01 Acute respiratory failure with hypoxia; J69.0 Pneumonitis due to inhalation of food and vomit; I25.5 Ischemic cardiomyopathy; E43 Unspecified severe protein-calorie malnutrition; J44.1 Chronic obstructive pulmonary disease with (acute) exacerbation; I50.23 Acute on chronic systolic (congestive) heart failure; D64.9 Anemia, unspecified; J15.6 Pneumonia due to other Gram-negative bacteria; R65.21 Severe sepsis with septic shock; R64 Cachexia; I27.2 Other secondary pulmonary hypertension; I25.10 Atherosclerotic heart disease of native coronary artery without angina pectoris; E86.1 Hypovolemia; Y95 Nosocomial condition; I49.3 Ventricular premature depolarization; E87.2 Acidosis; E86.0 Dehydration; G47.33 Obstructive sleep apnea (adult) (pediatric); B37.9 Candidiasis, unspecified; Z51.5 Encounter for palliative care; I35.0 Nonrheumatic aortic (valve) stenosis; R62.7 Adult failure to thrive; F17.200 Nicotine dependence, unspecified, uncomplicated; E78.5 Hyperlipidemia, unspecified; I71.4 Abdominal aortic aneurysm, without rupture; Z68.1 Body mass index [BMI] 19.9 or less, adult; Z95.2 Presence of prosthetic heart valve; I25.2 Old myocardial infarction; Z86.79 Personal history of other diseases of the circulatory system; Z87.01 Personal history of pneumonia (recurrent)
CPT/HCPCS: 31500; 36600; 71010; 71250; 74176; 80047; 80048; 80048 91; 80053; 80076; 80202; 81003; 82550; 82550 91; 82553; 82607; 82728; 82746; 82803; 82948; 83540; 83605; 83690; 83735; 83880; 84100; 84466; 84478; 85014; 85018; 85025; 85027; 85045; 86900; 86901; 86920; 87040; 87070; 87077; 87186; 87205; 87449; 87493; 87641; 93005; 93306; 94002; 94003; 94640; 94640 76; 94799; 99202; 99281; 99285; C1751; J1250; J1650; J1815; J1885; J1940; J2060; J2270; J2405; J2543; J2704; J2930; J3010; J3370; J3475; J3480; J7030; J7040; J7050; P9016; S0028